=== PATIENT | female | born 1980 | race Caucasian/White ===

== ENCOUNTER → 2020-06-11 | Outpatient (CLI) | payer BC | END | disposition home or self-care (01) | LOC: LABWHC1 10:02 | PROVIDERS: ATTEND Family Medicine | DX: R50.9 Fever, unspecified (principal) | CPT/HCPCS: 87502; U0003; C9803 ==

== ENCOUNTER 2022-01-09 07:15 | Day surgery (SDC) | payer BC, OTHER ==
[2022-01-08 09:31] VITALS: BMI 34.1
[~2022-01-09 07:15] MED LIST: LACTATED RINGERS 1,000 ML IV SCH; LIDOCAINE 1% (10MG/ML) FOR IV START INTRADERMA PRN
[2022-01-09 07:44] VITALS: TEMP 98.8
[2022-01-09 07:50] LABS: Glucose,Whole Blood 192 mg/dL (75-99)
[2022-01-09] MEDS ORDERED: PROPOFOL 10 MG/ML 20 ML VIAL IV ONE (08:45)
[2022-01-09] MEDS ORDERED: LIDOCAINE 2% INJ 20 MG/ML (2 ML VIAL) ONE (08:45)
--- NOTE | 2022-01-09 08:53 | P.PCN ---
Date of Procedure: 01/09/22 Procedure(s) Performed: BRIEF HISTORY: Patient is a 40-year-old, pleasant, years For an Upper Endoscopy As Part of Evaluation of Long-Standing History of GERD of Several Years Duration. Lately Has Been Having Intermittent Use of Nausea Vomiting about 2-3 Times A Week Associated with Some Dysphagia to Solids. She is presently on omeprazole 20 mg twice daily and Zofran as needed. PROCEDURE PERFORMED: Esophagogastroduodenoscopy with biopsy. PREOPERATIVE DIAGNOSIS: Long standing history of GERD/intermittent nausea vomiting and dysphagia. IV sedation per anesthesia. PROCEDURE: After informed consent was obtained, the patient was brought into the endoscopy unit. IV sedation was administered by Anesthesia under continuous monitoring. Initially the Olympus GIF-140 video endoscope was inserted into the mouth. Esophagus intubated without any difficulty. It was gradually advanced into the stomach and duodenum and carefully examined. The bulb and the second part of the duodenum appeared normal. The scope at this time was withdrawn to the stomach, adequately insufflated with air, and upon careful examination, mucosa of the antrum, had mild gastritis and biopsies were done from this area. The body, cardia and the fundus appeared normal. The scope was then withdrawn into the esophagus. The GE junction was located at 39 cm from the incisors. Small sliding type hiatal hernia noted.The esophagus appeared normal. There were no erosions or ulcerations seen for biopsies were done from the distal esophagus and the patient tolerated the procedure well. IMPRESSION: 1. Small sliding type hiatal hernia but no evidence of esophagitis or esophageal stricture 2. Mild antral gastritis RECOMMENDATIONS: The findings of this examination were discussed with the patient .as well as a family. She was advised to follow with the biopsy results. In the meantime his omeprazole 20 mg twice daily and follow antireflux measures. Continue Zofran as needed.
[2022-01-09 09:14] VITALS: BP 127/94; PULSE 89; RESP 15
== END 2022-01-09 09:33 | disposition home or self-care (01) ==
LOC: ORWHC2ENDO 07:15
PROVIDERS: ATTEND Internal Medicine Gastroenterology
DX: K29.50 Unspecified chronic gastritis without bleeding (principal); K29.80 Duodenitis without bleeding; K44.9 Diaphragmatic hernia without obstruction or gangrene; K31.7 Polyp of stomach and duodenum
CPT/HCPCS: 43239; 81025; 88305; J2704; J2001

== ENCOUNTER 2024-08-07 22:31 | Emergency (ER) | payer OTHER ==
[2024-08-07 22:42] VITALS: TEMP 97.9
--- NOTE | 2024-08-07 22:47 | ED ---
Nausea/Vomiting/Diarrhea HPI - General Chief complaint: Nausea/Vomiting/Diarrhea Stated complaint: NVD Time Seen by Provider: 08/07/24 22:46 Source: patient, RN notes reviewed Mode of arrival: ambulatory Limitations: no limitations - History of Present Illness Initial comments: This is a 44-year-old female significant medical history presented to emergency department with her for complaint of intractable nausea, vomiting, diarrhea that started at 1300 this afternoon. Patient states that she has been having a difficult time keeping down food and liquids. She denies fevers, chills, chest pain, shortness of breath, rhinorrhea, congestion. Denies dysuria, hematuria, hematochezia, melena. Previous surgical abdominal history of appendectomy and cholecystectomy. Endorses occasional marijuana use. - Related Data Home Medications Medication Instructions Recorded Confirmed Spironolactone 50 mg PO HS 05/22/16 01/08/22 Cetirizine HCl [Zyrtec] 20 mg PO DAILY 01/08/22 01/08/22 Dulaglutide [Trulicity] 3 mg SQ MENJIVAR 01/08/22 01/09/22 Estradiol Tab 1 tab PO HS 01/08/22 01/08/22 FLUoxetine HCL [PROzac] 20 mg PO HS 01/08/22 01/08/22 Fluticasone Nasal [place] [Flonase 2 spray EA NOSTRIL DAILY 01/08/22 01/08/22 Nasal [place]] Glimepiride [Amaryl] 4 mg PO DAILY 01/08/22 01/08/22 Levothyroxine Sodium [Synthroid] 125 mcg PO DAILY 01/08/22 01/08/22 Multivitamins, Thera [Multivitamin 1 tab PO DAILY 01/08/22 01/08/22 (formulary)] Omeprazole 40 mg PO BID 01/08/22 01/08/22 Ondansetron [Zofran] 4 mg PO TID PRN 01/08/22 01/09/22 lisinopriL 2.5 mg PO HS 01/08/22 01/08/22 Previous Rx's Medication Instructions Recorded Metoclopramide [Reglan] 10 mg PO TID PRN #15 tab 08/08/24 Allergies Allergy/AdvReac Type Severity Reaction Status Date / Time Sulfa (Sulfonamide Allergy Swelling,it Verified 08/07/24 22:39 Antibiotics) elizabeth Review of Systems ROS Statement: Those systems with pertinent positive or pertinent negative responses have been documented in the HPI. ROS Other: All systems not noted in ROS Statement are negative. Past Medical History Past Medical History: Diabetes Mellitus, GERD/Reflux, Thyroid Disorder Additional Past Medical History / Comment(s): "sinus issures", migraines, vomiting for past 2 1/2 months, "full feeling after eatting small amount of food", hashimotos, History of Any Multi-Drug Resistant Organisms: None Reported Past Surgical History: Appendectomy, Cholecystectomy Additional Past Surgical History / Comment(s): . Past Anesthesia/Blood Transfusion Reactions: Postoperative Nausea & Vomiting (PONV) Additional Past Anesthesia/Blood Transfusion Reaction / Comment(s): . Past Psychological History: Anxiety Smoking Status: Never smoker Past Alcohol Use History: None Reported Past Drug Use History: Marijuana - Past Family History Mother Family Medical History: Cancer, Deep Vein Thrombosis (DVT) Additional Family Medical History / Comment(s): lung cancer Father Family Medical History: Liver Disease General Exam Limitations: no limitations Eye exam: Present: normal appearance, PERRL, EOMI. Absent: scleral icterus, conjunctival injection, periorbital swelling ENT exam: Present: normal exam, mucous membranes moist Respiratory exam: Present: normal lung sounds bilaterally. Absent: respiratory distress, wheezes, rales, rhonchi, stridor Cardiovascular Exam: Present: regular rate, normal rhythm, normal heart sounds. Absent: systolic murmur, diastolic murmur, rubs, gallop, clicks GI/Abdominal exam: Present: soft, normal bowel sounds. Absent: distended, tenderness, guarding, rebound, rigid Extremities exam: Present: normal inspection, full ROM, normal capillary refill. Absent: tenderness, pedal edema, joint swelling, calf tenderness Back exam: Present: normal inspection Skin exam: Present: warm, dry, intact, normal color. Absent: rash Course Vital Signs 08/07/24 22:39 Temperature 97.9 F Pulse Rate 98 Respiratory 18 Rate Blood Pressure 141/96 O2 Sat by Pulse 100 Oximetry Medical Decision Making - Medical Decision Making Was pt. sent in by a medical professional or institution (, PA, ASSISTANT TO THE CEO, urgent care, hospital, or [facility]...) When possible be specific @ -No Did you speak to anyone other than the patient for history (EMS, parent, family, police, friend...)? What history was obtained from this source @ -No Did you review nursing and triage notes (agree or disagree)? Why? @ -I reviewed and agree with nursing and triage notes Were old charts reviewed (outside hosp., previous admission, EMS record, old EKG, old radiological studies, urgent care reports/EKG's, [facility] records)? Report findings @ -No old charts were reviewed Differential Diagnosis (chest pain, altered mental status, abdominal pain women, abdominal pain men, vaginal bleeding, weakness, fever, dyspnea, syncope, headache, dizziness, GI bleed, back pain, seizure, CVA, palpatations, mental health, musculoskeletal)? @ -Differential Abdominal Pain Women: Appendicitis, Cholecystitis, diverticulosis, ischemic bowel, pancreatitis, hepatitis, UTI, gastroenteritis, AAA, incarcerated hernia, bowel obstruction, constipation, inflammatory bowel, hepatitis, peptic ulcer disease, splenic infarction, perforated viscus, vulvitis, ovarian torsion, PID, kidney stone, placenta abruption, this is not meant to be an all-inclusive list EKG interpreted by me (3pts min.). @ -none X-rays interpreted by me (1pt min.). @ -None done CT interpreted by me (1pt min.). @ -None done U/S interpreted by me (1pt. min.). @ -None done What testing was considered but not performed or refused? (CT, X-rays, U/S, labs)? Why? @ -None What meds were considered but not given or refused? Why? @ -None Did you discuss the management of the patient with other professionals (professionals i.e. , PA, ASSISTANT TO THE CEO, lab, RT, psych nurse, social work supervisor, geospatial extractor analysis, teacher, public health service officer, case assembler)? Give summary @ -No Was smoking cessation discussed for >3mins.? @ -No Was critical care preformed (if so, how long)? @ -No Were there social determinants of health that impacted care today? How? (Homelessness, low income, unemployed, alcoholism, drug addiction, transportation, low edu. Level, literacy, decrease access to med. care, intermediate, rehab)? @ -No Was there de-escalation of care discussed even if they declined (Discuss DNR or withdrawal of care, Hospice)? DNR status @ -No What co-morbidities impacted this encounter? (DM, HTN, Smoking, COPD, CAD, Cancer, CVA, ARF, Chemo, Hep., AIDS, mental health diagnosis, sleep apnea, morbid obesity)? @ -None Was patient admitted / discharged? Hospital course, mention meds given and route, prescriptions, significant lab abnormalities, going to OR and other pertinent info. @ -Discharge. 44-year-old female presenting with acute nausea and vomiting. Patient is noted to be nauseous on arrival with multiple episodes of retching with no emesis. With a blood pressure 141/96. Abdominal examination is unremarkable for tenderness, distention. Abdomen is nonrigid. She is provided with IV fluids and antiemetics pending laboratory results. Patient's point of care glucose is 216. Labs remarkable for mild leukocytosis of 12.2 likely reactive secondary to episodes of emesis. Lactic acid elevated 3.4 likely secondary to dehydration. Patient's hCG is negative. Acetone is negative. Negative for COVID, flu, RSV. Reevaluation after medication and fluid administration patient states that she is feeling better. Additionally, has had no episodes of emesis and nausea subsided after Reglan administration. Patient symptoms likely secondary to gastroenteritis recommend she follow a liquid diet over 24 hours and slowly reintroducing foods after. She is provided with a prescription for Reglan. discussed with Dr. Rosen Undiagnosed new problem with uncertain prognosis? @ -No Drug Therapy requiring intensive monitoring for toxicity (Heparin, Nitro, Insulin, Cardizem)? @ -No Were any procedures done? @ -No Diagnosis/symptom? @ -Gastroenteritis, acute nausea and vomiting Acute, or Chronic, or Acute on Chronic? @ -Acute Uncomplicated (without systemic symptoms) or Complicated (systemic symptoms)? @ -uncomplicated Side effects of treatment? @ -No Exacerbation, Progression, or Severe Exacerbation? @ -No Poses a threat to life or bodily function? How? (Chest pain, USA, ME, pneumonia, PE, COPD, DKA, ARF, appy, cholecystitis, CVA, Diverticulitis, Homicidal, Suicidal, threat to staff... and all critical care pts) @ -No - Lab Data Result diagrams: 08/07/24 23:02 08/07/24 23:02 Lab Results 08/07/24 08/07/24 08/07/24 Range/Units 23:02 23:02 23:02 WBC 12.2 H (3.8-10.6) k/uL RBC 4.54 (3.80-5.40) m/uL Hgb 14.9 (11.4-16.0) gm/dL Hct 44.1 (34.0-46.0) % MCV 97.2 (80.0-100.0) fL MCH 32.8 (25.0-35.0) pg MCHC 33.8 (31.0-37.0) g/dL RDW 11.9 (11.5-15.5) % Plt Count 287 (150-450) k/uL MPV 7.8 Neutrophils % 83 % Lymphocytes % 13 % Monocytes % 3 % Eosinophils % 0 % Basophils % 0 % Neutrophils # 10.1 H (1.3-7.7) k/uL Lymphocytes # 1.6 (1.0-4.8) k/uL Monocytes # 0.4 (0-1.0) k/uL Eosinophils # 0.1 (0-0.7) k/uL Basophils # 0.0 (0-0.2) k/uL Sodium 139 (137-145) mmol/L Potassium 4.3 (3.5-5.1) mmol/L Chloride 107 (98-107) mmol/L Carbon Dioxide 18 L (22-30) mmol/L Anion Gap 14 mmol/L BUN 12 (7-17) mg/dL Creatinine 0.90 (0.52-1.04) mg/dL Est GFR (CKD-EPI)AfAm >90 (>60 ml/min/1.73 sqM) Est GFR (CKD-EPI)NonAf 80 (>60 ml/min/1.73 sqM) Glucose 224 H (74-99) mg/dL POC Glucose (mg/dL) (70-110) mg/dL POC Glu [employer] Dredge ID Plasma Lactic Acid Ruslan 3.4 H* (0.7-2.0) mmol/L Calcium 10.0 (8.4-10.2) mg/dL Magnesium 1.9 (1.6-2.3) mg/dL Total Bilirubin 1.2 (0.2-1.3) mg/dL AST 23 (14-36) U/L ALT 15 (4-34) U/L Alkaline Phosphatase 66 (38-126) U/L Total Protein 7.8 (6.3-8.2) g/dL Albumin 4.7 (3.5-5.0) g/dL Lipase 26 (23-300) U/L HCG, Qual Acetone, Qual Negative (Negative) Influenza Type A (PCR) (Not Detectd) Influenza Type B (PCR) (Not Detectd) RSV (PCR) (Not Detectd) SARS-CoV-2 (PCR) (Not Detectd) 08/07/24 08/07/24 08/07/24 Range/Units 23:02 23:05 23:11 WBC (3.8-10.6) k/uL RBC (3.80-5.40) m/uL Hgb (11.4-16.0) gm/dL Hct (34.0-46.0) % MCV (80.0-100.0) fL MCH (25.0-35.0) pg MCHC (31.0-37.0) g/dL RDW (11.5-15.5) % Plt Count (150-450) k/uL MPV Neutrophils % % Lymphocytes % % Monocytes % % Eosinophils % % Basophils % % Neutrophils # (1.3-7.7) k/uL Lymphocytes # (1.0-4.8) k/uL Monocytes # (0-1.0) k/uL Eosinophils # (0-0.7) k/uL Basophils # (0-0.2) k/uL Sodium (137-145) mmol/L Potassium (3.5-5.1) mmol/L Chloride (98-107) mmol/L Carbon Dioxide (22-30) mmol/L Anion Gap mmol/L BUN (7-17) mg/dL Creatinine (0.52-1.04) mg/dL Est GFR (CKD-EPI)AfAm (>60 ml/min/1.73 sqM) Est GFR (CKD-EPI)NonAf (>60 ml/min/1.73 sqM) Glucose (74-99) mg/dL POC Glucose (mg/dL) 216 H (70-110) mg/dL POC Glu [employer]red[employer] ID Buzzard Carolyn Plasma Lactic Acid Ruslan (0.7-2.0) mmol/L Calcium (8.4-10.2) mg/dL Magnesium (1.6-2.3) mg/dL Total Bilirubin (0.2-1.3) mg/dL AST (14-36) U/L ALT (4-34) U/L Alkaline Phosphatase (38-126) U/L Total Protein (6.3-8.2) g/dL Albumin (3.5-5.0) g/dL Lipase (23-300) U/L HCG, Qual Not Detected Acetone, Qual (Negative) Influenza Type A (PCR) Not Detected (Not Detectd) Influenza Type B (PCR) Not Detected (Not Detectd) RSV (PCR) Not Detected (Not Detectd) SARS-CoV-2 (PCR) Not Detected (Not Detectd) Disposition Clinical Impression: Nausea and vomiting Disposition: HOME SELF-CARE Condition: Good Instructions (If sedation given, give patient instructions): Acute Nausea and Vomiting (ED) Additional Instructions: Please return to the Emergency Department if symptoms worsen or any other concerns. Prescriptions: Metoclopramide [Reglan] 10 mg PO TID PRN #15 tab PRN Reason: Nausea Is patient prescribed a controlled substance at d/c from ED?: No Referrals: Jey Evangelista DO [Primary Care Provider] - 1-2 days Time of Disposition: 00:36
[2024-08-07] MEDS: SODIUM CHLORIDE 0.9% 1,000 ML IV STA (23:10)
[2024-08-07] MEDS: ONDANSETRON 4 MG/2 ML VIAL IVP STA (23:10)
[2024-08-07 23:12] LABS: Glucose,Whole Blood 216 mg/dL (70-110)
[2024-08-07 23:16] LABS: Basophils % (A) 0 %; Eosinophils # (A) 0.1 k/uL (0-0.7); Eosinophils % (A) 0 %; HCT 44.1 % (34.0-46.0); HGB 14.9 gm/dL (11.4-16.0); Lymphocytes # (A) 1.6 k/uL (1.0-4.8); Lymphocytes % (A) 13 %; MCH 32.8 pg (25.0-35.0); MCHC 33.8 g/dL (31.0-37.0); MCV 97.2 fL (80.0-100.0); Mean Platelet Volume 7.8; Monocytes # (A) 0.4 k/uL (0-1.0); Monocytes % (A) 3 %; Neutrophils # (A) 10.1 k/uL (1.3-7.7); Neutrophils % (A) 83 %; Platelet Count 287 k/uL (150-450); RBC 4.54 m/uL (3.80-5.40); RDW 11.9 % (11.5-15.5); WBC 12.2 k/uL (3.8-10.6)
[2024-08-07 23:30] LABS: ALT 15 U/L (4-34); AST 23 U/L (14-36); African American GFR (CKD) >90 (>60 ml/min/1.73 sqM); Albumin 4.7 g/dL (3.5-5.0); Alkaline Phosphatase 66 U/L (38-126); Anion Gap 14 mmol/L; Blood Urea Nitrogen 12 mg/dL (7-17); Carbon Dioxide 18 mmol/L (22-30); Chloride 107 mmol/L (98-107); Glucose 224 mg/dL (74-99); Lipase 26 U/L (23-300); Magnesium 1.9 mg/dL (1.6-2.3); Non-African American GFR(CKD) 80 (>60 ml/min/1.73 sqM); Potassium 4.3 mmol/L (3.5-5.1); Sodium 139 mmol/L (137-145); Total Bilirubin 1.2 mg/dL (0.2-1.3); Total Protein 7.8 g/dL (6.3-8.2)
[2024-08-07] MEDS: METOCLOPRAMIDE 5 MG/ML 2 ML VIAL IVP STA (23:38)
[2024-08-08] MEDS: KETOROLAC 15 MG/ML 1 ML VIAL IVP STA (00:31)
[2024-08-08] MEDS: ONDANSETRON 4 MG ODT STARTER PACK 2 TAB BTL PO STA (00:57)
[2024-08-08 01:06] VITALS: BP 139/91; PULSE 100; RESP 20
== END 2024-08-08 01:05 | disposition home or self-care (01) ==
LOC: EC 22:31
DX: R11.2 Nausea with vomiting, unspecified (principal); Z88.2 Allergy status to sulfonamides; Z11.52 Encounter for screening for COVID-19
CPT/HCPCS: 36415; 80053; 82009; 83605; 83690; 83735; 85025; 84703; 87636; 99284; 96374; 96375 ×2; 96361; J2765; J2405; J1885